=== PATIENT | male | born 1960 | race Caucasian/White ===

== ENCOUNTER 2016-09-01 16:35 | Emergency (ER) | payer MEDICARE ==
[2016-09-01 17:30] LABS: BASOPHIL 0.2 % (0-2); EOSINOPHIL 1.1 % (0-5); HGB 15.3 g/dl (13.2-18.0); LYMPHOCYTE 10.9 % (15-48); MCH 31.2 pg (25.0-31.0); MCV 91.6 fL (78.0-100.0); MONOCYTE 8.9 % (0-12); MPV 11.2 fL (6.0-9.5); NEUTROPHIL 78.9 % (41-80); PLT 217 K/uL (150-400); RBC 4.91 M/uL (4.70-6.00); RDW 14.5 % (11.5-14.0); WBC 16.8 K/uL (4.0-10.5)
[2016-09-01 17:45] LABS: ALBUMIN 3.8 g/dL (3.5-5.0); BILIRUBIN - TOTAL 0.3 mg/dL (0.1-1.0); CREATININE 0.7 mg/dL (0.7-1.2); GLOBULIN (CALCULATION) 3.2 g/dL (2.2-4.2); POTASSIUM 4.4 mmol/L (3.5-5.1)
[2016-09-01 18:42] LABS: BILIRUBIN NEGATIVE (NEGATIVE); BLOOD NEGATIVE Ery/uL (NEGATIVE); CLARITY CLEAR (CLEAR); COLOR YELLOW (YELLOW); GLUCOSE (U) NORMAL (NORMAL); KETONE (U) NEGATIVE (NEGATIVE); LEUKOCYTES NEGATIVE Leu/uL (NEGATIVE); NITRITE NEGATIVE (NEGATIVE); PROTEIN NEGATIVE (NEGATIVE); UROBILINOGEN 0.2 mg/dL (0.2-1.0)
== END 2016-09-01 19:50 | disposition home or self-care (01) ==
LOC: FER 16:35
PROVIDERS: Internal Medicine
DX: J44.9 Chronic obstructive pulmonary disease, unspecified (principal); J20.9 Acute bronchitis, unspecified; F17.210 Nicotine dependence, cigarettes, uncomplicated; I10 Essential (primary) hypertension; E11.9 Type 2 diabetes mellitus without complications; Z79.84 Long term (current) use of oral hypoglycemic drugs; Z95.0 Presence of cardiac pacemaker
CPT/HCPCS: 36415; 71010; 80053; 81003; 84484; 85025; 85379; 93005